=== PATIENT | male | born 1985 | race Two or more races ===

== ENCOUNTER 2022-01-14 22:59 | Emergency (ER) | payer OTHER ==
--- NOTE | 2022-01-15 00:15 | ED ---
Wound/Laceration HPI - General Chief Complaint: Wound/Laceration Stated Complaint: finger laceration, [facility] Time Seen by Provider: 01/15/22 00:07 Source: patient, RN notes reviewed Mode of arrival: ambulatory - History of Present Illness Initial Comments: Patient presents with a right middle finger laceration which actually occurred 2 days ago. Patient was put on a different line today and was irritating the wound and was afraid it was going to break open. Patient has been treating this himself at home. No tendon dysfunction. No distal paresthesias. No distal proximal injuries. Patient is up-to-date on tetanus. Patient is right-hand dominant. No headache, no fever or chills, no changes in vision or hearing, no sore throat or difficulty with speech, no neck pain, no chest pain or shortness of breath, no abdominal pain, no nausea or vomiting, no changes in urination or bowel movements, no numbness or tingling, no extremity pain, no skin rashes or les ions. Past medical, surgical, social, and family history reviewed. Patient states he initially cut it on a crankshaft. - Related Data Allergies Allergy/AdvReac Type Severity Reaction Status Date / Time No Known Allergies Allergy Verified 01/14/22 23:49 Review of Systems ROS Statement: Those systems with pertinent positive or pertinent negative responses have been documented in the HPI. ROS Other: All systems not noted in ROS Statement are negative. Past Medical History Past Medical History: No Reported History History of Any Multi-Drug Resistant Organisms: None Reported Past Surgical History: No Surgical Hx Reported Past Psychological History: No Psychological Hx Reported Smoking Status: Never smoker Past Alcohol Use History: None Reported Past Drug Use History: None Reported General Exam - General Exam Comments Initial Comments: Patient does not appear to be ill or toxic. General appearance: alert, in no apparent distress Head exam: Present: atraumatic, normocephalic, normal inspection Eye exam: Present: normal appearance, PERRL, EOMI. Absent: scleral icterus, conjunctival injection, periorbital swelling ENT exam: Present: normal exam, mucous membranes moist Neck exam: Present: normal inspection. Absent: tenderness, meningismus, lymphadenopathy Respiratory exam: Present: normal lung sounds bilaterally. Absent: respiratory distress, wheezes, rales, rhonchi, stridor Cardiovascular Exam: Present: regular rate, normal rhythm, normal heart sounds. Absent: systolic murmur, diastolic murmur, rubs, gallop, clicks GI/Abdominal exam: Present: soft. Absent: tenderness Extremities exam: Present: full ROM, normal capillary refill, other (Superficial laceration to the lateral aspect of the right right middle finger. No evidence of tendon involvement. Full function against resistance with both extension and flexion. Capillary refill is normal. No evidence of foreign body. No evidence of infectious process.). Absent: tenderness Back exam: Present: normal inspection Neurological exam: Present: alert, oriented X3, CN II-XII intact. Absent: motor sensory deficit Psychiatric exam: Present: normal affect, normal mood Course Vital Signs 01/14/22 01/15/22 23:46 00:27 Temperature 97.9 F 97.7 F Pulse Rate 67 63 Respiratory 19 16 Rate Blood Pressure 127/80 129/80 O2 Sat by Pulse 99 99 Oximetry Medical Decision Making - Medical Decision Making Patient counseled on care. Counseled on signs and symptoms of infection. No headache, no fever or chills, no changes in vision or hearing, no sore throat or difficulty with speech, no neck pain, no chest pain or shortness of breath, no abdominal pain, no nausea or vomiting, no changes in urination or bowel movements, no numbness or tingling, no extremity pain, no skin rashes or lesions. Past medical, surgical, social, and family history reviewed. Disposition Clinical Impression: Laceration, Laceration of right middle finger Narrative: Old laceration to the right middle finger, greater than 48 hours old Disposition: HOME SELF-CARE Condition: Good Instructions (If sedation given, give patient instructions): Acute Wound Care (ED) Additional Instructions: Follow-up with your regular physician as directed. Return to the ER immediately if any symptoms worsen, new symptoms arise, or any other problems develop. Is patient prescribed a controlled substance at d/c from ED?: No Referrals: None,Stated [Primary Care Provider] - 1-2 days Time of Disposition: 00:15
[2022-01-15 00:28] VITALS: BP 129/80; PULSE 63; RESP 16; TEMP 97.7
== END 2022-01-15 00:28 | disposition home or self-care (01) ==
LOC: EC 22:59
DX: S61.212A Laceration without foreign body of right middle finger without damage to nail, initial encounter (principal); X58.XXXA Exposure to other specified factors, initial encounter